=== PATIENT | male | born 1970 | race Caucasian/White ===

== ENCOUNTER 2022-02-11 04:07 | Emergency (ER) | payer SELFPAY ==
[~2022-02-11] VITALS: Ht 177.8 cm; Wt 74.8 kg
[2022-02-11 04:17] VITALS: BP 153/93
--- NOTE | 2022-02-11 04:29 | NUR ---
COVID SWAB COLLECTED AND SENT
== END 2022-02-11 05:11 ==
LOC: ER 04:12
DX: R51.9 Headache, unspecified (principal); R68.83 Chills (without fever); R05.9 Cough, unspecified; Z20.822 Contact with and (suspected) exposure to COVID-19; R03.0 Elevated blood-pressure reading, without diagnosis of hypertension
CPT/HCPCS: 87426; 99283; C9803